=== PATIENT | male | born 1985 | race Two or more races ===

== ENCOUNTER 2024-05-10 06:43 | Emergency (ER) | payer BC, SELFPAY ==
--- NOTE | ~2024-05-10 | XR_ITS ---
Portable chest x-ray Comparison: None Clinical History: Chest pain Findings: Lungs are clear, without focal consolidation or pleural effusion. Cardiomediastinal silho uette is mildly prominent, possibly due to AP technique. Bones and soft tissues are unremarkable. Impression: Clear lungs. Reviewed, dictated and finalized at location . TRAFFICKER Impression: Clear lungs.
--- NOTE | 2024-05-10 06:57 | ECG_ITS ---
Test Date: 2024-05-10 07:01:30 Measurements Intervals [place] Rate: 83 P: 4 CO: 158 QRS: 54 QRSD: 90 T: 31 QT: 331 QTc: 390 Interpretive Statements SINUS RHYTHM NORMAL ECG No previous ECG available for comparison Electronically Signed On 05-10-2024 08:02:21 [employer]STATE CONSERVATOR by Shoaib Kevin D.O.
--- NOTE | 2024-05-10 07:06 | ED.NAVMDI ---
HPI - Nausea/Vomiting/Diarrhea General Chief complaint: Nausea/Vomiting/Diarrhea Stated complaint: nausea, vomiting, body aches, chest pain Time Seen by Provider: 05/10/24 06:49 History of Present Illness HPI Narrative: Patient presenting with nausea, diarrhea, body aches, some chest pains 9:00 p.m. last night. Has already tried taking Imodium and Compazine without much improvement. Daughter at home as also sick with same symptoms Related Data Allergies Allergy/AdvReac Type Severity Reaction Status Date / Time No Known Allergies Allergy Verified 05/10/24 06:51 Review of Systems Review of Systems: All systems reviewed & are unremarkable except as noted in HPI and below Exam Narrative: EXAMINATION OF ORGAN SYSTEMS/BODY AREAS: Constitutional: Vital signs per nursing GENERAL: Looks sad but nontoxic HEAD: Normal with no signs of head trauma. EYES: EOMI, conjunctiva normal ENT: Hearing grossly intact LUNGS: Nonlabored breathing. HEART: [Regular rate and rhythm] ABD: [Soft], [nontender to palpation] EXT: Normal range of motion SKIN: [No rashes or lesions.] NEURO: [Alert and oriented x 3. No gross focal sensory or strength deficits.] PSYCH: Normal affect Course Vital Signs Vital signs: Vital Signs Temperature 98.8 F 05/10/24 07:31 Pulse Rate 89 05/10/24 07:31 Respiratory Rate 20 05/10/24 07:31 Blood Pressure 130/82 05/10/24 07:31 Pulse Oximetry 100 05/10/24 07:31 Temperature 98.8 F 05/10/24 07:31 Pulse Rate 89 05/10/24 07:31 Respiratory Rate 20 05/10/24 07:31 Blood Pressure 130/82 05/10/24 07:31 Pulse Oximetry 100 05/10/24 07:31 MDM - Nausea/Vomiting/Diarrhea MDM Narrative Medical decision making narrative: Patient presenting with viral syndrome, will treat symptoms and also obtain EKG and chest x-ray given his report of chest pain. EKG on my independent interpretation shows normal sinus rhythm rate 83, SD 158, QRS 90, QTC 390, normal axis no ST elevations depressions or anything else suggesting acute ischemia or arrhythmia Chest x-ray on my independent interpretation slightly limited, does not show any consolidation or pneumothorax. Labs showing mild leukocytosis. On re-evaluation, patient states he is feeling better. Still some mild periumbilical discomfort, he has had appendectomy in the past so I have low concern for appendicitis, and his LFTs/bilirubin are normal and he has no Barrientos sign. Additional medications provided her on re-evaluation, he states he does feel much better. Ready to go home. At this time I do feel he is stable for discharge home with prescriptions for medications and return precautions, with follow-up to his PCP. Patient/ at bedside agreeable to this plan Lab Data 05/10/24 07:01 05/10/24 07:01 Labs: Lab Results 05/10/24 Range/Units 07:01 WBC 15.6 H (4.5-10.0) K/mm3 RBC 5.73 (4.6-6.20) M/mm3 Hgb 15.3 (14.0-18.0) g/dL Hct 47.3 (42.0-52.0) % MCV 82.5 (80-100) fl MCH 26.7 (26-34) pg MCHC 32.3 (32-36) g/dl RDW 14.6 H (11.5-14.5) % Plt Count 255 (150-375) k/mm3 MPV 9.6 (7.4-10.4) fl Immature Gran % (Auto) Metal Engraver Neut % (Auto) Metal Engraver Lymph % (Auto) Metal Engraver [place] % (Auto) Metal Engraver Eos % (Auto) Metal Engraver Baso % (Auto) Metal Engraver Lymph # (Auto) Metal Engraver [place] # (Auto) Metal Engraver Eos # (Auto) Metal Engraver Baso # (Auto) Metal Eng[employer]ver Abs Immat Gran (auto) Metal Engraver Absolute Neuts (auto) Metal Engraver Absolute Nucleated RBC Metal Engraver Total Counted 100 Neutrophils % (Manual) 74 H (46-73) % Band Neutrophils % 3 (0-6) % Lymphocytes % (Manual) 8 L (18-44) % Monocytes % (Manual) 11 H (3-9) % Eosinophils % (Manual) 3 (0-4) % Basophils % (Manual) 1 (0-1) % Nucleated RBC % Metal Engraver Abs Neuts (Manual) 12.01 H (1.3-6.7) K/mm3 Abs Lymphs (Manual) 1.24 (1.1-4.5) K/mm3 Abs Monocytes (Manual) 1.71 H (0.1-0.90) K/mm3 Absolute Eos (Manual) 0.46 (0.02-0.50) K/mm3 Abs Basophils (Manual) 0.15 H (0.0-0.1) K/mm3 Platelet Estimate Adequate (Adequate) Clumped Platelets Present Large Platelets Present Anisocytosis 1+ Schistocytes None seen Sodium 138 (137-145) mmol/L Potassium 4.4 (3.4-5.0) mmol/L Chloride 102 (98-107) mmol/L Carbon Dioxide 27 (22-30) mmol/L Anion Gap 9 (4-12) mmol/L BUN 16 (9-20) mg/dL Creatinine 0.90 (0.7-1.3) mg/dL Estim Creat Clear Calc 109 ml/min Estimated GFR > 60 (59 - ) Glucose 150 H (65-110) mg/dL Calcium 9.5 (8.4-10.2) mg/dL Total Bilirubin 0.6 (0.2-1.3) mg/dL AST 24 (17-59) U/L ALT 25 (6-50) U/L Alkaline Phosphatase 67 (38-126) U/L Total Protein 8.0 (6.3-8.2) g/dL Albumin 4.7 (3.5-5.1) g/dL Lipase 44 (23-300) U/L Influenza A (RT-PCR) Negative (Negative) Influenza B (RT-PCR) Negative (Negative) RSV (RT-PCR) Negative (Negative) SARS-CoV-2 RNA (RT-PCR) Negative (Negative) Discharge Plan Discharge Clinical Impression: Nausea, vomiting, and diarrhea Patient Disposition: Home, Self-Care Condition: Stable Instructions: Acute Nausea and Vomiting (ED), Acute Diarrhea (ED), Abdominal Pain (ED) Additional Instructions: Please follow up with your doctor; you can always return for any further issues. You can take the medications as prescribed, and try to keep hydrated. Prescriptions: New famotidine 20 mg tablet 20 mg PO DAILY Qty: 30 0RF dicyclomine 20 mg tablet 20 mg PO TID PRN (Reason: abdominal pain) Qty: 30 0RF alum-mag hydroxide-simeth [Maalox Advanced] 200-200-20 mg/5 mL suspension 10 ml PO QID PRN (Reason: dyspepsia) Qty: 200 0RF Rx Instructions: administer between meals and at bedtime ondansetron 4 mg tablet,disintegrating 4 mg PO Q8H PRN (Reason: nausea and vomiting) Qty: 10 0RF Follow-up/Referrals: UNKNOWN,DOCTOR [Primary Care Provider] -
[2024-05-10 07:07] LABS: Hematocrit 47.3 % (42.0-52.0); Hemoglobin 15.3 g/dL (14.0-18.0); Mean Corpuscular HGB Conc 32.3 g/dl (32-36); Mean Corpuscular Hemoglobin 26.7 pg (26-34); Mean Corpuscular Volume 82.5 fl (80-100); Mean Platelet Volume 9.6 fl (7.4-10.4); Platelet Count Result 255 k/mm3 (150-375); Red Blood Count 5.73 M/mm3 (4.6-6.20); Red Cell Distribution Width 14.6 % (11.5-14.5); White Blood Count 15.6 K/mm3 (4.5-10.0)
[2024-05-10] MEDS: ONDANSETRON INJ 4 MG/2 ML VIAL IV PUSH (07:11)
[2024-05-10] MEDS: KETOROLAC 15 MG/ML VIAL (*BKC) IV PUSH (07:11)
[2024-05-10 07:17] LABS: Alanine Aminotransferase 25 U/L (6-50); Albumin Level 4.7 g/dL (3.5-5.1); Alkaline Phosphatase 67 U/L (38-126); Anion Gap 9 mmol/L (4-12); Aspartate Amino Transferase 24 U/L (17-59); Bilirubin,Total 0.6 mg/dL (0.2-1.3); Blood Urea Nitrogen 16 mg/dL (9-20); Calcium 9.5 mg/dL (8.4-10.2); Carbon Dioxide 27 mmol/L (22-30); Chloride 102 mmol/L (98-107); Estimated CRCL calculation 109 ml/min; Estimated Glomerular Filt Rate > 60; Glucose 150 mg/dL (65-110); Lipase 44 U/L (23-300); Potassium 4.4 mmol/L (3.4-5.0); Sodium 138 mmol/L (137-145)
[2024-05-10 07:30] LABS: Band Neutrophils Percent 3 % (0-6); Basophils Absolute Manual 0.15 K/mm3 (0.0-0.1); Basophils Percent Manual 1 % (0-1); Eosinophils Absolute Manual 0.46 K/mm3 (0.02-0.50); Eosinophils Percent Manual 3 % (0-4); Lymphocytes Absolute Manual 1.24 K/mm3 (1.1-4.5); Lymphocytes Percent Manual 8 % (18-44); Monocytes Absolute Manual 1.71 K/mm3 (0.1-0.90); Monocytes Percent Manual 11 % (3-9); Neutrophils Absolute Manual 12.01 K/mm3 (1.3-6.7); Neutrophils Percent Manual 74 % (46-73); Platelet Clumps Present; Platelet Estimate Adequate (Adequate); Total Cells Counted 100
[2024-05-10 07:31] VITALS: BP 130/82; PULSE 89; RESP 20; TEMP 37.1; O2SAT 100
[2024-05-10 07:31] LABS: Anisocytosis 1+; Large Platelets Present
[2024-05-10 07:32] LABS: Schistocytes None Seen
[2024-05-10] MEDS: BISMUTH SUBSALICYLATE 262 MG CHEWABLE TABLET 524 MG PO (07:40)
[2024-05-10 07:56] LABS: Influenza A QL RT-PCR Negative (Negative); Influenza B QL RT-PCR Negative (Negative); RSV RNA, RT-PCR Negative (Negative); SARS-CoV-2 RNA PCR Negative (Negative)
[2024-05-10] MEDS: PANTOPRAZOLE SODIUM IV 40 MG VIAL IV PUSH (08:22)
[2024-05-10] MEDS: MAG HYDROX/AL HYDROX/SIMETH 30 ML UDC PO (08:22)
[2024-05-10] MEDS: LOPERAMIDE HCL 2 MG CAPSULE 4 MG PO (08:22)
[2024-05-10] MEDS: DICYCLOMINE HCL 10 MG CAPSULE 20 MG PO (08:23)
[2024-05-10] MEDS: FAMOTIDINE 20 MG TABLET PO (08:23)
[2024-05-10 09:05] VITALS: BP 110/77; PULSE 90; RESP 18; O2SAT 97
== END 2024-05-10 09:10 | disposition home or self-care (01) ==
PROVIDERS: Emergency Provider Emergency Medicine
DX: R19.7 Diarrhea, unspecified (principal); R11.2 Nausea with vomiting, unspecified; Z20.822 Contact with and (suspected) exposure to COVID-19
CPT/HCPCS: 36415; 71045; 80053; 83690; 85025; 87637; 93005; 96374; 96375; 99284; A9270; J1885; J2405; J2470